=== PATIENT | male | born 1980 | race Caucasian/White ===

== ENCOUNTER 2023-09-13 22:57 | Emergency (ER) | payer BC, SELFPAY ==
[2023-09-13 23:02] VITALS: BP 126/82; PULSE 87; RESP 18; TEMP 36.5; O2SAT 96; BMI 23.1
[2023-09-13 23:36] VITALS: BMI 25.0
--- NOTE | 2023-09-13 23:46 | HMH.EDGENADL ---
Discharge Plan Disposition Patient Disposition: Home, Self-Care Condition: Good Referrals Follow up/Referrals: Obie Davis MD [Primary Care Provider] - See instructions Activity Restrictions/Add. Instructions Additional Instructions/Restrictions: You were evaluated in the ER. You are appropriate for discharge at this time. Follow-up for repeat rabies vaccines at the health department. It is very important you do not miss any doses of this. Follow-up with your primary care physician for reevaluation in a few days. Return to the ER with new, worsening, or otherwise concerning symptoms. Clinical Impressions Clinical Impression: Bat bite wound Instructions Patient Instructions: Animal Bites Discharge ED Provider: Pratima Rainey General Adult HPI General Chief complaint: Animal Bite Stated complaint: bit by bat RT ear Time Seen by Provider: 09/13/23 23:20 Mode of Arrival: Ambulatory Source of Information: Patient Limitations: No Limitations Description of Symptoms (Recalled from ER Triage Doc. by RN): Pt was outside and saw bat flying around and suddenly bat flew down and what pt thinks is scratch behind right ear. He said it felt like a sting type feeling. Pt stated that he washed area with soap and water for 15 minutes after it happened. History of Present Illness HPI narrative: 43-year-old male with a history of anxiety and depression presents to the ER with concerns of possible bat bite. Patient states he was outside approximately 1 to 1.5 hours prior to arrival and saw a bat flying around. Suddenly the bat flew down and made contact with the patient, patient is concerned that he felt a stinging sensation behind the right ear. Reportedly he wash the area with soap and water for approximately 15 minutes after it happened. Patient reports that his was concerned for a bite or scratch. Patient has never had rabies prophylaxis previously, he believes he is up-to-date on most of his vaccines but does not recall the last time he received Tdap. Related Data Allergies Allergy/AdvReac Type Severity Reaction Status Date / Time meperidine [From Demerol] Allergy Unknown Confusion Verified 09/13/23 23:26 [facility] Disclaimer: The information contained in this section may have been updated after the patient was seen, as this information can be updated by other users. Social History Smoking Status: Never smoker alcohol intake: never current occupational status: other Travel in the last 8 weeks: None ROS Obtained: Yes All systems reviewed & no additional complaints except as documented Integumentary/Breasts Skin/Breast: Reports other (Small wound behind right ear) Physical Exam General General appearance: alert and in no apparent distress Head Head exam: atraumatic and normocephalic Eye Eye exam: Present PERRL and EOMI ENT ENT exam: Present mucous membranes moist Neck Neck exam: Present normal inspection and full ROM Chest Chest inspection: Present symmetric chest wall rise Respiratory Respiratory exam: Absent respiratory distress or stridor Cardiovascular Cardiovascular exam: Present regular rate and normal rhythm Extremities Exam Extremities exam: Present full ROM Neurological Exam Neurological exam: Present alert and oriented X3; Absent motor sensory deficit Psychiatric Psychiatric exam: Present normal affect and normal mood Skin Skin exam: Present warm, dry and other (Punctate scratch versus small superficial puncture wound posterior to the right ear in the crease of the postauricular space, no bleeding) Medical Decision Making Paul Inquiry Pt receiving controlled substance: No Vital Signs: 09/13/23 23:02 Temperature 97.7 F Temperature Source Oral Pulse Rate [Right Brachial] 87 Respiratory Rate 18 Blood Pressure [Right Arm] 126/82 Blood Pressure Mean [Right Arm] 96 02 Sat by Pulse Oximetry 96 Oxygen Delivery Method Room Air Orders (Tests/Meds): ED MEDICATIONS Discontinued Medications Generic Name Dose Route Start Last Admin Trade Name Freq PRN Reason Stop Dose Admin Rabies Immune Globulin 1,769 unit 09/13/23 23:27 09/13/23 23:56 Rabies Immune Globulin/Pf 300 Unit/Ml Vial IM 09/13/23 23:28 1,769 unit ONCE ONE Administration Rabies Vaccine 2.5 unit 09/13/23 23:27 09/13/23 23:50 Rabies Vaccine (Pcec)/Pf 2.5 Unit Vial IM 09/13/23 23:28 2.5 unit .ONCE ONE Administration Tetanus/Diphtheria Toxoids 0.5 ml 09/13/23 23:27 09/13/23 23:48 Tetanus-Diphth Toxoid, Adult 0.5ml Syr IM 09/13/23 23:28 0.5 ml .ONCE ONE Administration Medical Decision Narrative: In summary, 43-year-old male with history of anxiety and depression presents to the ER with concerns of possible bat bite/scratch. On initial evaluation patient is hemodynamically stable, afebrile, physical exam notable for mild skin disruption in the crease of the postauricular space. Due to significant risk of rabies if this is a bat bite, patient will receive rabies prophylaxis. He is also not sure that he is up-to-date on tetanus and will receive tetanus booster. Risks and benefits of these interventions were discussed with the patient and he would like to have all of them performed. Patient is receiving rabies immunoglobulin, vaccine, and Tdap booster. On reassessment, he continues to be stable and is appropriate for discharge. He was given instructions on continued symptomatic management, outpatient follow-up including for repeat rabies vaccines, and strict return precautions for the ER. He indicated understanding patient was discharged in stable condition. Critical Care Critical Care Time Critical Care Time: No
[2023-09-13] MEDS: TETANUS-DIPHTH TOXOID, ADULT 0.5ML SYR 0.5 ML IM (23:48)
[2023-09-13] MEDS: RABIES VACCINE (PCEC)/PF 2.5 UNIT VIAL IM (23:50)
[2023-09-13] MEDS: RABIES IMMUNE GLOBULIN/PF 300 UNIT/ML VIAL 1769 UNIT IM (23:56)
[2023-09-14 00:49] VITALS: BP 128/88; PULSE 88; RESP 18; TEMP 36.6; O2SAT 98
--- NOTE | 2023-09-14 00:50 | PC.NURSE ---
Tetanus and Rabies vaccine info and animal bite sheet faxed to health department.
== END 2023-09-14 00:51 | disposition home or self-care (01) ==
PROVIDERS: Emergency Provider Emergency Medicine; PCP Family Medicine
DX: S01.331A Puncture wound without foreign body of right ear, initial encounter (principal); W55.81XA Bitten by other mammals, initial encounter; Z23 Encounter for immunization
CPT/HCPCS: 90375; 90471; 90675; 90714; 96372; 99284

== ENCOUNTER 2023-09-17 10:44 | Emergency (ER) | payer BC, SELFPAY ==
[2023-09-17 10:51] VITALS: BMI 25.7
[2023-09-17 11:00] VITALS: BP 110/69; PULSE 83; RESP 20; TEMP 36.7; O2SAT 98; BMI 24.3
[2023-09-17] MEDS: RABIES VACCINE (PCEC)/PF 2.5 UNIT VIAL IM (11:13)
[2023-09-17 11:20] VITALS: BP 110/69; PULSE 83; RESP 20; TEMP 36.7; O2SAT 98
== END 2023-09-17 11:27 | disposition home or self-care (01) ==
LOC: UTC 10:46
PROVIDERS: Emergency Provider Nurse Practitioner Family; PCP Family Medicine
DX: Z29.14 Encounter for prophylactic rabies immune globulin (principal); Z20.3 Contact with and (suspected) exposure to rabies; Z23 Encounter for immunization
CPT/HCPCS: 90675; 96372; 99212; G0463

== ENCOUNTER 2023-09-21 17:43 | Emergency (ER) | payer BC, SELFPAY ==
[2023-09-21 17:50] VITALS: BMI 23.7
[2023-09-21 17:55] VITALS: BP 127/81; PULSE 60; RESP 18; TEMP 36.4; O2SAT 99; BMI 23.7
[2023-09-21] MEDS: RABIES VACCINE (PCEC)/PF 2.5 UNIT VIAL IM (17:57)
--- NOTE | 2023-09-21 17:57 | EXP.UTC ---
Discharge Plan Referrals Follow up/Referrals: Provider,ReferralMD [Primary Care Provider] - See instructions Discharge ED Provider: Obie Serrano [facility] [place] H[place] General Stated complaint: rabies booster Time Seen by Provider: 09/21/23 17:57 Related Data Allergies Allergy/AdvReac Type Severity Reaction Status Date / Time meperidine [From Demerol] Allergy Unknown Confusion Verified 09/13/23 23:26 [facility] Disclaimer: The information contained in this section may have been updated after the patient was seen, as this information can be updated by other users. Social History (Updated 09/14/23 @ 00:17 by Pratima Rainey MD) Smoking Status: Never smoker alcohol intake: never current occupational status: other Travel in the last 8 weeks: None Medical Decision Making Orders (Tests/Meds): ED MEDICATIONS Generic Name Dose Route Start Last Admin Trade Name Freq PRN Reason Stop Dose Admin Rabies Vaccine 2.5 unit 09/21/23 17:50 Rabies Vaccine (Pcec)/Pf 2.5 Unit Vial IM 09/21/23 17:51 .ONCE ONE
[2023-09-21 18:01] VITALS: BP 127/81; PULSE 60; RESP 18; TEMP 36.4; O2SAT 99
== END 2023-09-21 18:07 | disposition home or self-care (01) ==
PROVIDERS: Emergency Provider Nurse Practitioner Family
DX: Z29.14 Encounter for prophylactic rabies immune globulin (principal); Z20.3 Contact with and (suspected) exposure to rabies; Z23 Encounter for immunization
CPT/HCPCS: 90471; 90675; 99212; G0463

== ENCOUNTER 2023-09-28 15:54 | Emergency (ER) | payer BC, SELFPAY ==
[2023-09-28 15:57] VITALS: BMI 23.1
[2023-09-28 16:00] VITALS: BP 116/64; PULSE 69; RESP 19; TEMP 36.6; O2SAT 98; BMI 24.4
[2023-09-28] MEDS: RABIES VACCINE (PCEC)/PF 2.5 UNIT VIAL IM (16:10)
[2023-09-28 16:15] VITALS: BP 116/64; PULSE 69; RESP 18; TEMP 36.6; O2SAT 98
== END 2023-09-28 16:20 | disposition home or self-care (01) ==
PROVIDERS: Emergency Provider Nurse Practitioner
DX: Z23 Encounter for immunization (principal)
CPT/HCPCS: 90471; 90675; 99212; G0463